=== PATIENT | female | born 1985 | race Hispanic/Latino ===

== ENCOUNTER 2022-01-29 05:27 | Inpatient (IN) | payer MEDICAID ==
[2022-01-29] MEDS ORDERED: Ketorolac Tromethamine 30 MG/ML VIAL ONE (05:48)
[2022-01-29] MEDS ORDERED: Ondansetron PF 4 MG/2 ML Vial ONE (05:48)
[2022-01-29 06:03] LABS: #Lymphocytes 1.4 thou/uL (1.20-3.40); #Monocytes 0.8 thou/uL (0.11-0.59); #Neutrophils 10.9 thou/uL (1.40-6.50); %Eosinophils 0.3 % (0.0-10.0); %Lymphocytes 10.5 % (21.0-51.0); %Monocytes 6.1 % (0.0-10.0); %Neutrophils 83.1 % (42.0-75.0); Hemoglobin 14.9 g/dL (12.0-16.0); Mean Corpuscular HGB CONC 32.8 g/dL (32.0-36.0); Mean Corpuscular Hemoglobin 26.8 pg (27.0-31.0); Mean Corpuscular Volume 81.7 fL (78.0-98.0); Mean Platelet Volume 8.7 fL (7.4-10.4); Platelet Count 259 thou/uL (130-400); RBC Distribution Width 15.8 % (11.5-14.5); Red Blood Cell (RBC) Count 5.55 mill/uL (4.20-5.40); White Blood Cell (WBC) Count 13.2 thou/uL (4.8-10.8)
[2022-01-29 06:23] LABS: ALT (SGPT) 16 U/L (8-55); AST (SGOT) 16 U/L (5-34); Albumin 4.2 g/dL (3.5-5.0); Alkaline Phosphatase 115 U/L (40-110); Anion Gap 11 mmol/L (10-20); BUN (Urea Nitrogen) 6 mg/dL (7.0-18.7); Bilirubin, Total 0.5 mg/dL (0.2-1.2); Calc. Creatinine Clearance 0 mL/min (70-130); Calcium 9.3 mg/dL (7.8-10.44); Carbon Dioxide 25 mmol/L (22-29); Chloride 105 mmol/L (98-107); Globulin 3.6 g/dL (2.4-3.5); Glucose 147 mg/dL (70-105); Lipase 10 U/L (8-78); Potassium 3.7 mmol/L (3.5-5.1); Protein, Total 7.8 g/dL (6.0-8.3); Sodium 137 mmol/L (136-145)
[2022-01-29] MEDS ORDERED: Piperacillin/Tazobactam 3.375 GM VIAL ONE (07:02)
[2022-01-29 08:29] LABS: SARS-CoV-2 NAA Rapid Test Not Detected (NotDetected)
[2022-01-29] MEDS ORDERED: Ondansetron PF 4 MG/2 ML Vial IVP PRN (08:38)
[2022-01-29] MEDS ORDERED: Morphine 4 MG/ML VIAL ONE (08:59)
[2022-01-29] MEDS: Morphine 2 MG/ML VIAL SLOW IVP PRN ×3 (09:05→13:41)
[2022-01-29] MEDS: D5 1/2 NS w/20 mEq KCL 1,000 ML IV SCH ×2 (10:24→21:15)
[2022-01-29] MEDS: Ketorolac Tromethamine 30 MG/ML VIAL IVP PRN (11:11)
[2022-01-29] MEDS ORDERED: Piperacillin/Tazobactam 3.375 GM in Sodium Chloride 0.9% 100 ML IVPB SCH (16:00)
[2022-01-29] MEDS: Morphine 4 MG/ML VIAL SLOW IVP PRN ×4 (16:16→22:49)
[2022-01-29 19:06] VITALS: BMI 25.0
[2022-01-30] MEDS: Piperacillin/Tazobactam 3.375 GM in Sodium Chloride 0.9% 100 ML IVPB SCH ×3 (00:12→18:41)
[2022-01-30] MEDS: Morphine 4 MG/ML VIAL SLOW IVP PRN ×3 (01:00→06:41)
[2022-01-30 05:29] LABS: Bacteria/HPF None Seen HPF (None Seen); Bilirubin Negative (Negative); Blood, Urine Trace (Negative); Clarity Clear (Clear); Glucose, Urine (Dipstick) 30 mg/dL (Negative); Ketone, Urine 10 mg/dL (Negative); Leukocyte Negative Leu/uL (Negative); Mucous/LPF 2+ LPF (<2+); Nitrite Negative (Negative); Pregnancy Test - Urine (BHCG) Negative (Negative); Pregu Control Background? CLEAR/WHITE (CLR/WHITE); Pregu Control Bar Appear? YES (CONTROL BAR); Protein, Urine (Dipstick) 70 mg/dL (Neg-Trace); Specific Gravity 1.039 (1.002-1.036); Specific Gravity, Urine 1.039 (1.002-1.036); Urobilinogen Normal mg/dL (Less than 2)
[2022-01-30 05:31] LABS: Urine Culture Reflex No No
[2022-01-30 06:17] LABS: ALT (SGPT) 27 U/L (8-55); AST (SGOT) 27 U/L (5-34); Albumin 3.5 g/dL (3.5-5.0); Alkaline Phosphatase 112 U/L (40-110); Anion Gap 13 mmol/L (10-20); BUN (Urea Nitrogen) 5 mg/dL (7.0-18.7); Bilirubin, Total 0.7 mg/dL (0.2-1.2); Calc. Creatinine Clearance 111 mL/min (70-130); Calcium 8.9 mg/dL (7.8-10.44); Carbon Dioxide 26 mmol/L (22-29); Chloride 103 mmol/L (98-107); Globulin 3.2 g/dL (2.4-3.5); Glucose 112 mg/dL (70-105); Potassium 4.7 mmol/L (3.5-5.1); Protein, Total 6.7 g/dL (6.0-8.3); Sodium 137 mmol/L (136-145)
[2022-01-30 06:30] LABS: Band 22 % (5-11); Hemoglobin 15.9 g/dL (12.0-16.0); Hypochromia SLIGHT = 6-15 cells (100X) (0-5/hpf); Lymphocytes 7 % (21-51); MDiff Complete? YES; Mean Corpuscular HGB CONC 32.6 g/dL (32.0-36.0); Mean Corpuscular Hemoglobin 27.3 pg (27.0-31.0); Mean Corpuscular Volume 83.6 fL (78.0-98.0); Mean Platelet Volume 8.4 fL (7.4-10.4); Monocytes 7 % (0-10); Neutrophil 64 % (42-75); Platelet Count 265 thou/uL (130-400); Platelet Morphology Comment Appears Adequate; Red Blood Cell (RBC) Count 5.82 mill/uL (4.20-5.40); White Blood Cell (WBC) Count 26.2 thou/uL (4.8-10.8)
[2022-01-30] MEDS: D5 1/2 NS w/20 mEq KCL 1,000 ML IV SCH ×3 (06:42→18:31)
[2022-01-30] MEDS ORDERED: Sodium Chloride 0.9% 1,000 ML IV SCH (07:30)
[2022-01-30] MEDS: Ketorolac Tromethamine 30 MG/ML VIAL IVP PRN ×2 (09:58→18:40)
[2022-01-30] MEDS ORDERED: fentaNYL Citrate/PF 100 MCG/2 ML SYRINGE ONE (13:19)
[2022-01-30] MEDS ORDERED: Iopamidol 15 ML ONE ×2 (13:47)
[2022-01-30] MEDS ORDERED: Lidocaine 1% w/Epinephrine 1:100K 20 ML VIAL ONE (13:47)
[2022-01-30] MEDS ORDERED: Bupivacaine 0.25% HCL 30 ML VIAL ONE (13:47)
[2022-01-30] MEDS ORDERED: Rocuronium Bromide 10 MG/ML (10ML VIAL) ONE (14:06)
[2022-01-30] MEDS ORDERED: PROPOFOL 200 MG/20 ML VIAL ONE (14:06)
[2022-01-30] MEDS ORDERED: Ondansetron PF 4 MG/2 ML Vial ONE (14:06)
[2022-01-30] MEDS ORDERED: PHENYLEPHRINE-NS 100 MCG/ML 10 ML SYRINGE ONE (14:06)
[2022-01-30] MEDS ORDERED: Ketorolac Tromethamine 30 MG/ML VIAL ONE (14:06)
[2022-01-30] MEDS ORDERED: Lidocaine 1% PF 5 ML VIAL ONE (14:06)
[2022-01-30] MEDS ORDERED: Calcium Chloride 1 GM/10 ML Abboject SYRINGE ONE (14:06)
[2022-01-30] MEDS ORDERED: Glycopyrrolate 0.2 MG/ML 5 ML SYRINGE ONE (14:06)
[2022-01-30] MEDS ORDERED: Dexamethasone 20 MG/5 ML VIAL ONE (14:06)
[2022-01-30] MEDS ORDERED: Albumin 5% 500 ML ONE (14:16)
[2022-01-30] MEDS ORDERED: Promethazine HCl 25 MG/ML VIAL IM PRN ×2 (15:15→15:31)
[2022-01-30] MEDS ORDERED: Dextrose 5% in Water 1,000 ML IV PRN (15:15)
[2022-01-30] MEDS ORDERED: Dextrose 50% Abboject 50 ML SYRINGE SLOW IVP PRN (15:15)
[2022-01-30] MEDS ORDERED: Morphine 4 MG/ML VIAL SLOW IVP PRN (15:15)
[2022-01-30] MEDS ORDERED: Ondansetron PF 4 MG/2 ML Vial IVP PRN (15:15)
[2022-01-30] MEDS ORDERED: hydrALAZINE 20 MG/ML VIAL SLOW IVP PRN (15:15)
[2022-01-30] MEDS ORDERED: Mag-Al 1200 mg/1200 mg/30 ML UDCUP PO PRN (15:15)
[2022-01-30] MEDS ORDERED: Calcium Carbonate 500 MG ChewTAB PO PRN (15:15)
[2022-01-30] MEDS ORDERED: Meperidine HCl/PF 25 MG/ML VIAL SLOW IVP PRN (15:31)
[2022-01-30] MEDS ORDERED: HYDROmorphone 2 MG/ML VIAL SLOW IVP PRN (15:31)
[2022-01-30] MEDS ORDERED: Promethazine HCl 25 MG/ML VIAL IVPB PRN (15:31)
[2022-01-30] MEDS ORDERED: Ondansetron HCl/PF 4 MG/2 ML Vial IVP PRN (15:31)
[2022-01-30] MEDS ORDERED: Fentanyl 100 MCG/2 ML VIAL ONE (15:53)
[2022-01-30] MEDS: Famotidine 20 MG TAB PO SCH (21:58)
[2022-01-30] MEDS: Famotidine/PF 20 mg/2ml Vial SLOW IVP SCH (22:03)
[2022-01-30] MEDS: HYDROcodone/Acetaminophen 10/325 mg Tablet PO PRN (22:58)
[2022-01-31] MEDS: D5 1/2 NS w/20 mEq KCL 1,000 ML IV SCH ×3 (00:32→15:18)
[2022-01-31] MEDS: Piperacillin/Tazobactam 3.375 GM in Sodium Chloride 0.9% 100 ML IVPB SCH ×3 (02:25→19:43)
[2022-01-31 06:09] LABS: #Lymphocytes 1.1 thou/uL (1.20-3.40); #Monocytes 0.7 thou/uL (0.11-0.59); #Neutrophils 11.1 thou/uL (1.40-6.50); %Eosinophils 0.1 % (0.0-10.0); %Lymphocytes 8.5 % (21.0-51.0); %Monocytes 5.2 % (0.0-10.0); %Neutrophils 86.3 % (42.0-75.0); Mean Corpuscular Hemoglobin 27.1 pg (27.0-31.0); Mean Corpuscular Volume 87.5 fL (78.0-98.0); Mean Platelet Volume 8.5 fL (7.4-10.4); Platelet Count 232 thou/uL (130-400); RBC Distribution Width 15.6 % (11.5-14.5); Red Blood Cell (RBC) Count 4.41 mill/uL (4.20-5.40); White Blood Cell (WBC) Count 12.9 thou/uL (4.8-10.8)
[2022-01-31] MEDS: Famotidine 20 MG TAB PO SCH (09:48)
[2022-01-31] MEDS: Famotidine/PF 20 mg/2ml Vial SLOW IVP SCH (09:49)
[2022-01-31] MEDS: Ketorolac Tromethamine 30 MG/ML VIAL IVP PRN (15:23)
[2022-01-31] MEDS: HYDROcodone/Acetaminophen 10/325 mg Tablet PO PRN (15:23)
[2022-01-31 16:01] VITALS: BP 115/73; TEMP 98.8
== END 2022-01-31 18:45 | disposition home or self-care (01) | DRG 419 ==
LOC: ERS 05:27 → SJJU 06:36 → OBSVTOIN 01-30 16:42
PROVIDERS: ADMIT Surgery; ATTEND Surgery
PROC: 0FT44ZZ Resection of Gallbladder, Percutaneous Endoscopic Approach (ICD-10-PCS; principal; 2022-01-30)
PROC: BF10YZZ Fluoroscopy of Bile Ducts using Other Contrast (ICD-10-PCS; 2022-01-30)
DX: K81.0 Acute cholecystitis (principal); Z20.822 Contact with and (suspected) exposure to COVID-19; K82.A1 Gangrene of gallbladder in cholecystitis
CPT/HCPCS: 36415; 47532; 71045; 76705; 80053; 81001; 81025; 83690; 84484; 85025; 88304; 93005; 96365; 96375; 96376; C1713; G0378; J1100; J1610; J1885; J2270; J2405; J2543; J2704; J3010; J3480; J3490; J7050; P9045; Q9967; S0020; U0002